=== PATIENT | female | born 2000 | race Caucasian/White ===

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

== ENCOUNTER 2020-10-04 23:21 | Emergency (ER) | payer OTHER, SELFPAY | END 2020-10-04 23:54 | disposition home or self-care (01) | LOC: ERS 23:21 | DX: I10 Essential (primary) hypertension (principal); R07.9 Chest pain, unspecified; F17.210 Nicotine dependence, cigarettes, uncomplicated; Z79.899 Other long term (current) drug therapy | CPT/HCPCS: 71045; 93005 ==